=== PATIENT | female | born 1955 | race Caucasian/White ===

== ENCOUNTER 2020-02-23 14:05 | Emergency (ER) | payer BC, OTHER ==
[2020-02-23] MEDS ORDERED: OCTYL 2-CYANOACRYLATE 1 EACH TP ONE (14:37)
[2020-02-23] MEDS ORDERED: TETANUS/DIPHTHERIA TOXOID [ADULT] 0.5 ML VIAL IM ONE (14:38)
== END 2020-02-23 15:40 | disposition home or self-care (01) ==
LOC: EDH 14:05
DX: S61.215A Laceration without foreign body of left ring finger without damage to nail, initial encounter (principal); W26.0XXA Contact with knife, initial encounter; Y93.G3 Activity, cooking and baking; Y92.89 Other specified places as the place of occurrence of the external cause; Y99.8 Other external cause status
CPT/HCPCS: 12001; 73140; 90471; 90714

== ENCOUNTER → 2020-06-03 | Outpatient (CLI) | payer OTHER | END | disposition home or self-care (01) | LOC: OIH 09:19 | PROVIDERS: ATTEND Neurological Surgery | DX: M43.16 Spondylolisthesis, lumbar region (principal); M47.816 Spondylosis without myelopathy or radiculopathy, lumbar region | CPT/HCPCS: 72100 ==